=== PATIENT | male | born 1955 | race Caucasian/White ===

== ENCOUNTER 2018-11-02 12:38 | Emergency (ER) | payer OTHER ==
[~2018-11-02] VITALS: Ht 167.6 cm; Wt 93.0 kg
[2018-11-02 12:38] VITALS: Ht 167.6 cm; Wt 93.0 kg
== END 2018-11-02 16:30 | disposition expired ==
LOC: ED 12:38
DX: I46.9 Cardiac arrest, cause unspecified (principal)